=== PATIENT | male | born 1985 ===

== ENCOUNTER 2017-11-12 13:49 | Emergency (ER) | payer OTHER ==
[2017-11-12] MEDS ORDERED: Rabies VIRUS VACCINE (Imovax)* 2.5 UNIT/ML 1 ML IM ONE (13:53)
[2017-11-12] MEDS ORDERED: Tetan/Diph/Pertus SYR(Tdap)* 0.5 ML SYR(BOOSTRIX) use SYR IM ONE (13:53)
[2017-11-12] MEDS ORDERED: Rabies Immune Globulin 10 ML* 150 UNIT/ML VIAL IM ONE (13:53)
--- NOTE | 2017-11-12 13:54 | UC ---
Bite Injury/Animal HPI - HPI Summary HPI Summary: 32 yo male presents with exposure to a bat. He tells me that on thursday 11/09 he noticed small droppings in his apartment that he figured were from a mouse. On 11/10 he noticed a bat in his apartment and on 11/11 he was able to loly the bat out of the apartment. He contacted the health department and they recommended that he undergo rabies vaccination - prompting his visit to . He does not believe he was bitten. - History of Current Complaint Stated Complaint: RABIES Time Seen by Provider: 11/12/17 13:53 Hx Obtained From: Patient Severity Currently: None - Allergies/Home Medications Allergies/Adverse Reactions: Allergies Allergy/AdvReac Type Severity Reaction Status Date / Time No Known Allergies Allergy Verified 11/12/17 13:56 Home Medications: Home Medications NK [No Home Medications Reported] 11/12/17 [History Confirmed 11/12/17] PMH/Surg Hx/FS Hx/Imm Hx - Additional Past Medical History Additional PMH: None Previously Healthy: Yes - Surgical History Surgical History: None - Family History Known Family History: Positive: None - Social History Occupation: Student Lives: Alone Alcohol Use: Occasionally Substance Use Type: None Smoking Status (MU): Never Smoked Tobacco Review of Systems Constitutional: Negative Skin: Negative Respiratory: Negative Cardiovascular: Negative Gastrointestinal: Negative Neurovascular: Negative Neurological: Negative Psychological: Negative All Other Systems Reviewed And Are Negative: Yes Physical Exam - Summary Physical Exam Summary: GENERAL: NAD. WDWN. No pain distress. SKIN: No bite viera or puncture wounds appreciated. No streaking, bleeding, or drainage. NECK: Supple. Nontender. No lymphadenopathy. CHEST: No accessory muscle use. Breathing comfortably and in no distress. CV: Pulses intact NEURO: Alert. CN II-XII grossly intact. PSYCH: Age appropriate behavior. Triage Information Reviewed: Yes Vital Signs: Vital Signs: Temp Pulse Resp BP Pulse Ox 99.3 F 79 16 123/76 99 11/12/17 13:56 11/12/17 13:56 11/12/17 13:56 11/12/17 13:56 11/12/17 13:56 Vital Signs Reviewed: Yes Bite Injury Course/Dx - Course Course Of Treatment: tdap was in 2016. Rabies vaccine and RIG given according to health department guidelines. - Differential Dx/Diagnosis Provider Diagnoses: Bat exposure Discharge - Sign-Out/Discharge Documenting (check all that apply): Patient Departure - Discharge Plan Condition: Stable Disposition: HOME Patient Education Materials: Rabies Vaccine (By injection), Rabies Immune Globulin (By injection), Rabies (ED) Referrals: No Primary Care Phys,NOPCP [Primary Care Provider] - Additional Instructions: If you develop a fever, shortness of breath, chest pain, new or worsening symptoms - please call your PCP or go to the ED. - Billing Disposition and Condition Condition: STABLE Disposition: Home
[2017-11-12] MEDS ORDERED: Rabies Immune Globulin 2 ML* 150 UNITS/ML VIAL IM ONE (14:00)
[2017-11-12 14:02] VITALS: BP 123/76
== END 2017-11-12 15:05 | disposition home or self-care (01) ==
LOC: UCEAST 13:49
DX: Z20.3 Contact with and (suspected) exposure to rabies (principal); Z23 Encounter for immunization
CPT/HCPCS: 90375; 90471; 96372; 99201; G0463